=== PATIENT | male | born 1995 | race Caucasian/White ===

== ENCOUNTER 2017-10-23 11:36 | Emergency (ER) | payer MEDICAID, OTHER ==
[2017-10-23 11:57] LABS: Hematocrit 43.9 % (42.0-52.0); Hemoglobin 15.5 gm/dL (13.5-18.0); Mean Cell Volume 93.2 fl (78-100); Mean Corpuscular Hemoglobin 32.9 pg (27-31); Mean Corpuscular Hgb Conc 35.3 g/dl (32-36); Neutrophil # 3.5 K/mm3 (1.3-6.0); Neutrophil % 54.6 % (42-75.0); Platelet Count 248 K/mm3 (150-450); Red Blood Count 4.71 M/mm3 (4.7-6.0); Red Cell Distribution Width 12.1 % (11.5-14.0); White Blood Count 6.3 K/mm3 (4.0-10.5)
[2017-10-23 12:12] LABS: Albumin * 4.2 gm/dl (3.4-5.0); Anion Gap 9.6 mmol/L (6.8-13.8); BUN/Creatinine Ratio 16.5 (9.0-21.6); Bilirubin, Total 0.6 mg/dL (0.0-1.1); Ca. Corrected For Albumin 8.1 mg/dL (8.4-10.2); Calcium * 8.6 mg/dL (7.9-10.9); Carbon Dioxide 29.5 mmol/L (24-32.6); Potassium 4.1 mmol/L (3.4-4.6); Total Protein 7.7 gm/dL (6.2-8.2)
--- NOTE | 2017-10-23 12:12 | ERNOTE ---
GI Bleeding/Rectal Pain ER Date of Service: 10/23/17 Presenting Symptoms: rectal bleeding, other - bright red blood per rectum only x 1 never prior to yesterday and today Time Seen by Provider: 10/23/17 12:07 Immunizations: IMMUNIZATION HX Immunizations Up to Date Yes History of Influenza Vaccine No Allergies/Adverse Reactions: Allergies No Known Allergies Allergy (Verified 10/23/17 11:43) Home Medications: HOME MEDICATIONS Sennosides [Senna-Extra] 17.2 mg PO DAILY #30 tablet 10/23/17 [Last Taken Unknown] Narrative: Patient noted 2 episode of bright red blood per rectum Date (Duration): 10/21/17 Time (Timing): 08:00 Timing: intermittent - he reports he has never had this before Quality/Severity: Present: mild Date of Last Bowel Movement: 10/23/17 Nausea/Vomiting: Absent: blood, coffee grounds, blood streaked Abdominal Pain: Present: RLQ Rectal Bleeding: Present: bright red blood on paper Associated Symptoms: Reports: constipation/hard stools. Denies: black stools, tarry stools, back pain, fainting, dizziness, light headedness Prior Treament: Reports: other - no prior episodes or treatments for above complaint Review of Systems - Review of Systems Constitutional: Present: no symptoms reported EYE: Present: no symptoms reported ENT: Present: no symptoms reported Respiratory: Present: no symptoms reported Cardiology: Present: no symptoms reported Gastrointestinal/Abdominal: Present: See HPI, constipation Genitourinary: Present: no symptoms reported Musculoskeletal: Present: other - right hand pain and palmar lesion on 4th tendon sheath has a cyst. Skin: Present: no symptoms reported Neurological: Present: no symptoms reported Endocrine: Present: no symptoms reported Hematologic/Lymphatic: Present: no symptoms reported. Absent: easy bruising, easy bleeding, swollen glands Psych: Present: no symptoms reported All Other Systems: All systems neg except as marked - Narrative Narrative: pmh, psh, sh, fam hx, allergies, and medications reviewed. - Patient's Past Medical History Patient History - Medical: No pertinent hx Patient History - Cardiac/Respiratory: No pertinent hx Patient History - Cancer: No Hx of Cancer Patient History - Surgical Procedures: No surgical history - Social History Living Situations: home Psych History: No pertinent hx Smoking Status: Current every day smoker Alcohol Use: none Drug Use: none - Immunizations Immunizations Up to Date: Yes History of Influenza Vaccine: No Physical Exam - Physical Exam General Appearance: Present: wd/wn, alert, no apparent distress Head Exam: Present: normal inspection, no evidence of injury Eye Exam: Normal inspection: bilateral, PERRL: bilateral, EOMI: bilateral Ears, Nose, Throat: Present: normal ENT inspection Neck: Present: normal inspection, nontender Respiratory: Present: no respiratory distress, normal breath sounds, chest nontender, lungs clear Cardiovascular/Chest: Present: regular rate, rhythm, no murmur Gastrointestinal/Abdominal: Present: normal bowel sounds, nontender, nondistended, no organomegaly Rectal Exam: Present: nontender, normal rectal tone, normal prostate, heme negative stool Male Genitals Exam: Present: deferred Back Exam: Present: normal range of motion, no CVA tenderness, no vertebral tenderness Extremity Exam: Present: other - right palmar surface of hand 4th flexor tendon has .5 cm cyst, tender to touch and has pain with work activity Skin Exam: Present: normal color, warm/dry Lymphatic Exam: Present: no adenopathy ED Progress - Results and Orders Patient's Lab Results:: I have reviewed the patient's lab results. Results and Orders: Laboratory Tests 10/23/17 10/23/17 10/23/17 11:54 11:54 12:17 WBC 6.3 RBC 4.71 Hgb 15.5 Hct 43.9 MCV 93.2 MCH 32.9 H MCHC 35.3 RDW 12.1 Plt Count 248 MPV 10.0 H Immature Gran % (Auto) 0.90 H Immature Gran # (Auto) 0.06 H Neutrophils % 54.6 Lymphocytes % 31.4 Monocytes % 9.2 H PT 9.7 INR (Anticoag Therapy) 0.97 PTT (Ramonita) 27.9 Sodium 137 Plasma Sodium 137 Potassium 4.1 Chloride 102 Carbon Dioxide 29.5 Anion Gap 9.6 BUN 21 Creatinine 1.27 Est GFR (Non-Af Amer) 76 BUN/Creatinine Ratio 16.5 Random Glucose 92 Calcium 8.6 Total Bilirubin 0.6 AST 14 ALT 26 Alkaline Phosphatase 75 Total Protein 7.7 Albumin 4.2 Stool Occult Blood 10/23/17 Unknown WBC RBC Hgb Hct MCV MCH MCHC RDW Plt Count MPV Immature Gran % (Auto) Immature Gran # (Auto) Neutrophils % Lymphocytes % Monocytes % PT INR (Anticoag Therapy) PTT (Ramonita) Sodium Plasma Sodium Potassium Chloride Carbon Dioxide Anion Gap BUN Creatinine Est GFR (Non-Af Amer) BUN/Creatinine Ratio Random Glucose Calcium Total Bilirubin AST ALT Alkaline Phosphatase Total Protein Albumin Stool Occult Blood Negative - Vital Signs Patient's Vital Signs:: I have reviewed the patient's vital signs. Vital Signs: Vital Signs 10/23/17 11:38 Temperature 37.2 C Pulse Rate 85 Respiratory 12 Rate Blood Pressure 146/98 O2 Sat by Pulse 98 Oximetry - Progress/Reassessment Chief Complaint: GI Bleed Progress:: Improved Progress Note-Subjective: 10/23/17 22:56 fecal occult blood negative, blood likely due to hemorrhoids - Transfer of Care Expected Disposition: Discharge Departure Clinical Impression: Ganglion cyst of flexor tendon sheath of finger of right hand Hemorrhoids Qualifiers: Hemorrhoid type: first degree Qualified Code(s): K64.0 - First degree hemorrhoids - Departure Disposition: Home self-care Condition: Good Instructions: Hemorrhoids, [id number], Disposable Sitz Bath, Ganglion Cyst Additional Instructions: HAND SURGEON FOR REFERRAL : Dr. Carlton Luo Orthopa[facility] [address] [facility] [address], [place] [address] [phone] Prescriptions: Sennosides [Senna-Extra] 17.2 mg PO DAILY #30 tablet
[2017-10-23 12:24] LABS: Prothrombin Time (Patient) 9.7 Seconds (9.0-11.0)
[2017-10-23 12:26] LABS: INR 0.97 INR (0.90-1.10); Partial Thrombolplastin Time 27.9 Seconds (24-32)
[2017-10-23 14:34] VITALS: BP 123/74
== END 2017-10-23 14:33 | disposition home or self-care (01) ==
LOC: ER 11:36
DX: K64.0 First degree hemorrhoids; M67.441 Ganglion, right hand